=== PATIENT | female | born 1950 | race Caucasian/White ===

== ENCOUNTER 2022-03-13 09:54 | Emergency (ER) | payer OTHER ==
[~2022-03-13] VITALS: Ht 152.4 cm; Wt 42.2 kg
[2022-03-13 10:15] VITALS: BP_SYST 111
--- NOTE | 2022-03-13 10:20 | NUR ---
Placed in room 3 . Placed on data capture clerk, blood pressure machine and pulse oximeter. To gown for exam. Side rails up. Report given to EDILIA STEWART.
--- NOTE | 2022-03-13 10:25 | NUR ---
ER DR. REZA AT THE BEDSIDE EXAMINING PT
[2022-03-13 11:26] LABS: BASOPHILS # (AUTO) 0.2 K/uL (0.0-0.2); BASOPHILS % (AUTO) 4.3 % (0.0-2.0); HEMATOCRIT 41.8 % (36-48); HEMOGLOBIN 14.3 g/dL (12.0-16.0); LYMPHOCYTES # (AUTO) 1.8 K/uL (1.0-5.5); LYMPHOCYTES % (AUTO) 44.7 % (20.5-51.5); MEAN CORPUSCULAR HEMOGLOBIN 32 pg (27-31); MEAN CORPUSCULAR HGB CONC 34 % (32-36); MEAN CORPUSCULAR VOLUME 94 fL (79.0-98.0); MONOCYTES # (AUTO) 0.3 K/uL (0.0-1.0); MONOCYTES % (AUTO) 6.9 % (1.7-9.3); NEUTROPHILS # (AUTO) 1.7 K/uL (1.8-7.7); NEUTROPHILS % (AUTO) 43.1 % (40.0-70.0); PLATELET COUNT (AUTO) 217 K/uL (130-430); RED BLOOD CELL COUNT(AUTO) 4.43 MIL/uL (4.2-6.2); RED CELL DISTRIBUTION WIDTH 13.6 % (9.0-15.0); WHITE BLOOD COUNT (AUTO) 4.1 K/uL (4.8-10.8)
[2022-03-13 11:40] LABS: ANION GAP 5 (5-15); CALCIUM 8.5 mg/dL (8.4-11.0); CHLORIDE 109 mmol/L (98-107); CREATININE 0.78 mg/dL (0.55-1.30); GLUCOSE 88 mg/dL (70-99); POTASSIUM 3.6 mmol/L (3.5-5.1); SODIUM SERUM 142 mmol/L (136-145); UREA NITROGEN, BLOOD 17 mg/dL (8-21)
[2022-03-13 11:50] LABS: ALANINE AMINOTRANSFERASE 25 U/L (12-78); ALBUMIN 3.7 g/dL (3.4-4.8); ASPARTATE AMINOTRANSFERASE 25 U/L (10-37); TOTAL BILIRUBIN 0.4 mg/dL (0.0-1.0)
--- NOTE | 2022-03-13 13:03 | NUR ---
A/OX4 VSS VERBALIZED UNDERSTANDING OF DC INSTRUCTIONS, AMBULATED WITH STEADY GAIT, ALL QUESTIONS ANSWERED
--- NOTE | 2022-03-13 13:04 | NUR ---
Patient given written and verbal discharge instructions and verbalizes understanding. ER MD discussed with patient the results and treatment provided. Patient in stable condition. Opportunity for questions provided and answered. Medication side effect fact sheet provided.
== END 2022-03-13 10:20 | disposition home or self-care (01) ==
LOC: SED 09:54
DX: S01.81XA Laceration without foreign body of other part of head, initial encounter (principal); R55 Syncope and collapse; X58.XXXA Exposure to other specified factors, initial encounter; Y93.89 Activity, other specified; Y92.89 Other specified places as the place of occurrence of the external cause; Y99.8 Other external cause status
CPT/HCPCS: 36415; 70450-TC; 71045; 76376; 80053; 82550; 83605; 84484; 85025; 99285

== ENCOUNTER 2022-04-24 10:16 | Emergency (ER) | payer OTHER ==
[~2022-04-24] VITALS: Ht 152.4 cm; Wt 43.1 kg
[2022-04-24 10:32] VITALS: BP_SYST 113
--- NOTE | 2022-04-24 10:35 | NUR ---
PT TRIAGED AND TAKEN TO BED 5. REPORT GIVEN TO EDILIA HAQUE. DR. JARVIS MADE AWARE. PT STATES SHE FELL TO HER KNEES 2 DAYS AGO AND SINCE THEN HAS HAD LOWER BACK PAIN 7/ AND HAS BEEN UNABLE TO EAT. VSS. AMBULATORY. DENIES PAST MEDICAL HX BUT WAS ADMITTED TO [facility] ABOUT A MONTH AGO FOR LOSS OF CONCIOUSNESS, REASON STILL UNKNOWN. RESP E/U. ON R/A. SIDERAILS UP X2.
--- NOTE | 2022-04-24 10:50 | NUR ---
MD JARVIS AT BEDSIDE FOR ASSESS
[2022-04-24] MEDS ORDERED: KETOROLAC TROMETHAMINE 60 MG/2 ML VIAL IM ONE (11:00)
[2022-04-24] MEDS ORDERED: NAPR-1172 PO (12:37)
--- NOTE | 2022-04-24 12:43 | NUR ---
Patient given written and verbal discharge instructions and verbalizes understanding. ER MD discussed with patient the results and treatment provided. Patient in stable condition. ID arm band removed. IV catheter removed intact and dressing applied, no active bleeding. Rx of naproxen given. Patient educated on pain management and to follow up with PMD. Pain Scale . Opportunity for questions provided and answered. Medication side effect fact sheet provided.
[2022-04-24 13:03] VITALS: BP_SYST 134
== END 2022-04-24 13:03 | disposition home or self-care (01) ==
LOC: SED 10:16
DX: S33.5XXA Sprain of ligaments of lumbar spine, initial encounter (principal); Z79.899 Other long term (current) drug therapy; W18.30XA Fall on same level, unspecified, initial encounter; Y93.89 Activity, other specified; Y92.89 Other specified places as the place of occurrence of the external cause; Y99.8 Other external cause status
CPT/HCPCS: 99284; 72131; 76376; 96372; J1885

== ENCOUNTER 2024-05-29 17:16 | Emergency (ER) | payer OTHER ==
[~2024-05-29] VITALS: Ht 154.9 cm; Wt 40.8 kg
[~2024-05-29 17:16] MED LIST: NAPR-1172 PO
[2024-05-29 17:30] VITALS: BP_SYST 115; PULSE 119; RESP 18; TEMP 100.8; O2SAT 94
[2024-05-29 21:52] VITALS: BP_SYST 115; PULSE 119; RESP 18; TEMP 100.8; O2SAT 94
[2024-05-29 22:08] LABS: BILIRUBIN,URINE NEGATIVE (NEGATIVE); CLARITY/URINE SL CLOUDY (CLEAR); COLOR,URINE YELLOW (YELLOW); GLUCOSE,URINE NEGATIVE (NEGATIVE); KETONES,URINE TRACE (NEGATIVE); LEUKOCYTE ESTERASE ,URINE 1+ (NEGATIVE); NITRITE, URINE POSITIVE (NEGATIVE); PROTEIN URINE TRACE (NEGATIVE); UROBILINOGEN,URINE 0.2 (0.2-1.0)
[2024-05-29 22:18] LABS: COVID19 ANTIGEN SOFIA FIA NEGATIVE (NEGATIVE)
[2024-05-29 22:20] LABS: INFLUENZA TYPE A Negative (NEGATIVE); INFLUENZA TYPE B NEGATIVE (NEGATIVE)
[2024-05-29 23:12] LABS: BLOOD, URINE TRACE (NEGATIVE)
[2024-05-29 23:25] LABS: BACTERIA,URINE MODERATE /HPF (None Seen); RBC,URINE 0-3 /HPF (0-3)
[2024-05-30] MEDS ORDERED: CEPH-548 PO (03:41)
== END 2024-05-29 21:50 | disposition home or self-care (01) ==
LOC: SED 17:16
DX: N39.0 Urinary tract infection, site not specified (principal); R50.9 Fever, unspecified; Z20.822 Contact with and (suspected) exposure to COVID-19; Z98.890 Other specified postprocedural states; Z79.899 Other long term (current) drug therapy
CPT/HCPCS: 36415; 81000; 81001; 81015; 87086; 87186; 99283